=== PATIENT | female | born 1980 | race African-American/Black ===

== ENCOUNTER 2018-08-15 08:35 | Emergency (ER) | payer SELFPAY ==
[~2018-08-15] VITALS: Ht 167.6 cm; Wt 129.3 kg
--- NOTE | 2018-08-15 09:13 | PHYS DOC ---
Past Medical History Past Medical History: Arthritis, Diabetes-Type II, Hypertension Adult General Chief Complaint Chief Complaint: LOWER EXT PAIN HPI HPI Patient is a 38 year old AA female who presents to the ER with complaints of increased swelling in RLE and R knee pain without injury. Pt denies any recent long distance travel or flights. She reports a hx of arthritis in her knee and states that she has tried taking naproxen and ibuprofen with little relief of her symptoms. Pt states that her right lower leg now feels numb since 2030 last night and she is concerned that she may have a blood clot. She denies any hx of blood clots. Currently she rates her pain as a 6/10 on the pain scale, there are no alleviating factors, movement and weight bearing exacerbate the pain. Review of Systems Review of Systems Constitutional: Denies fever or chills [] Musculoskeletal: See HPI Integument: Denies rash or skin lesions [] Neurologic: Denies headache, focal weakness or sensory changes [] Allergies Allergies Allergies Coded Allergies Type Severity Reaction Last Updated Verified Insulins Allergy Intermediate Rash 08/15/18 Yes oxycodone Allergy Intermediate Itching 08/15/18 Yes sulfamethoxazole Allergy Intermediate Rash 08/15/18 Yes trimethoprim Allergy Intermediate Rash 08/15/18 Yes Physical Exam Physical Exam Constitutional: Well developed, well nourished, no acute distress, non-toxic appearance, obese[] HENT: Normocephalic, atraumatic, bilateral external ears normal, nose normal. [] Eyes: conjunctiva normal, no discharge. [] Neck: Normal range of motion, no stridor. [] Extremities: No cyanosis, no clubbing, ROM intact; 1+ edema of RLE, no bruising or erythema, RLE posterior tibial and pedal pulses 2+ Neurologic: Alert and oriented X 3, normal motor function, normal sensory function, no focal deficits noted. [] Psychologic: Affect normal, judgement normal, mood normal. [] Current Patient Data Vital Signs Vital Signs Date Time Temp Pulse Resp B/P (MAP) Pulse Ox O2 Delivery O2 Flow Rate FiO2 08/15/18 08:40 98.8 82 20 176/101 (126) 99 Room Air 98.8 EKG EKG [] Radiology/Procedures Radiology/Procedures PROCEDURE: VENOUS LOWER EXTREMITY RIGHT Examination: Right Lower Extremity Venous Doppler Ultrasound History: Right leg swelling Comparison: None Procedure: Elliott scale, color flow 2D and spectal waveform analysis images are obtained with and without compression in the area of the common femoral vein, superficial femoral vein - femoral vein junction, main femoral vein (superficial femoral vein) and popliteal vein. Veins of the proximal calf are also imaged. Findings: There is normal duplex flow, color flow and compressibility of all visualized vein segments. No evidence of deep venous thrombus is present. Impression: No evidence of DVT in the visualized right lower extremity venous system. [] Course & Med Decision Making Course & Med Decision Making Pertinent Labs and Imaging studies reviewed. (See chart for details) Dx: R knee pain, R lower extremity numbness U/S of RLE was negative for blood clot, Continue taking naproxen or ibuprofen for pain as previously prescribed. Continue taking your blood pressure medication. Follow up with PCP for further evaluation and treatment of BP and chronic knee pain, return to the ER if sx worsen. [] Dragon Disclaimer Dragon Disclaimer This electronic medical record was generated, in whole or in part, using a voice recognition dictation system. Departure Departure Impression: Primary Impression: Right knee pain Additional Impressions: Numbness of right lower extremity Hypertension Disposition: HOME, SELF-CARE Condition: STABLE Referrals: UNKNOWN PCP NAME (PCP) Patient Instructions: Knee Pain, [id number], Paresthesia, [id number] Additional Instructions: Continue taking home meds as previously prescribed. Apply ice or heat to sore areas as needed for comfort. Activity as tolerated. Follow up with PCP for further evaluation and tx, return to the ER if sx worsen. Problem Qualifiers Primary Impression: Right knee pain Chronicity: acute Qualified Codes: M25.561 - Pain in right knee Additional Impressions: Hypertension Hypertension type: unspecified Qualified Codes: I10 - Essential (primary) hypertension ELENA CARMEN APRN Aug 15, 2018 09:13
--- NOTE | 2018-08-15 09:37 | RAD ---
Examination: Right Lower Extremity Venous Doppler Ultrasound History: Right leg swelling Comparison: None Procedure: Elliott scale, color flow 2D and spectal waveform analysis images are obtained with and without compression in the area of the common femoral vein, superficial femoral vein - femoral vein junction, main femoral vein (superficial femoral vein) and popliteal vein. Veins of the proximal calf are also imaged. Findings: There is normal duplex flow, color flow and compressibility of all visualized vein segments. No evidence of deep venous thrombus is present. Impression: No evidence of DVT in the visualized right lower extremity venous system. Electronically signed by: Brendon Almonte MD (08/15/2018 9:33 AM) [id number]
[2018-08-15 10:08] VITALS: BP 175/83
== END 2018-08-15 10:08 | disposition home or self-care (01) ==
LOC: ER 08:35
DX: M25.561 Pain in right knee (principal); R20.0 Anesthesia of skin; R60.0 Localized edema; I10 Essential (primary) hypertension; M19.90 Unspecified osteoarthritis, unspecified site; E11.9 Type 2 diabetes mellitus without complications; Z88.5 Allergy status to narcotic agent; Z88.1 Allergy status to other antibiotic agents; Z88.2 Allergy status to sulfonamides; Z88.8 Allergy status to other drugs, medicaments and biological substances
CPT/HCPCS: 93971; 99284